=== PATIENT | male | born 1965 | race Caucasian/White ===

== ENCOUNTER 2016-07-08 13:44 | Inpatient (IN) | payer MEDICARE ==
[~2016-07-08] VITALS: Ht 157.5 cm; Wt 72.6 kg
[2016-07-08 14:30] VITALS: BP 148/89
[2016-07-08 14:47] VITALS: BP 148/89; BMI 29.3
[2016-07-08 15:11] LABS: HEMATOCRIT 42.2 % (42.0-54.0); HEMOGLOBIN 14.2 g/dL (13.5-17.5); MCHC 33.6 g/dL (31.0-37.0); MCV 86.1 fL (80.0-100.0); RDW 12.2 % (11.5-14.5); WBC 12.8 10x3/uL (4.8-10.8)
[2016-07-08 15:34] LABS: ALBUMIN 3.2 g/dL (3.4-5.0); ALKALINE PHOSPHATASE 101 U/L (46-116); ALT (SGPT) 24 U/L (10-68); BILIRUBIN - TOTAL 0.52 mg/dL (0.2-1.3); CALC OSMOLALITY 267 mosm/kg (275-300); CALCIUM 9.6 mg/dL (8.5-10.1); CARBON DIOXIDE 29.4 mmol/L (21.0-32.0); CHLORIDE - SERUM 95 mmol/L (98-107); CREATININE - SERUM 0.8 mg/dL (0.6-1.3); GLUCOSE 106 mg/dL (74-106); PROTEIN - SERUM 7.4 g/dL (6.4-8.2); SODIUM 134 mmol/L (136-145); UREA NITROGEN 12 mg/dL (7-18); eGFR NON AFRICAN AMERICAN > 90 mL/min (90-120)
[2016-07-08 15:50] LABS: PLATELET COUNT 465 10x3/uL (130-400)
[2016-07-08] MEDS ORDERED: HYDROCODONE-APA1 TAB PO (15:52)
[2016-07-08] MEDS ORDERED: VISTARIL25 MG PO (15:52)
[2016-07-08 17:28] LABS: EOSINOPHILS 2 % (0-7); LYMPHOCYTES 19 % (15-50); MONOCYTES 4 % (2-11); NEUTROPHILS 75 % (40-80); PLATELET ESTIMATE NORMAL
--- NOTE | 2016-07-08 18:08 | NUR ---
REMAINS WITHOUT NEEDS,WITHOUT DISTRESS.CONT PLAN OF CARE
[2016-07-08 20:00] VITALS: BP 113/65
--- NOTE | 2016-07-08 20:00 | NUR ---
ASSESSMENT PER FLOWSHEET. IV PATENT LEFT FROE ARM OF NS AT 75CC'S/HR SITE CLEAR RT LUNG BASES WITH EXPIRATORY WHEEZES. DIMINISHED ON THE LEFT. SCD'S ON. SR UP X2 CALL LIGHT WITHIN REACH.
--- NOTE | 2016-07-08 21:20 | NUR ---
MEDS GIVEN PER APR. UP AD LISA TO BR CLEAN CATCH UA OBTAINED AND SENT TO LAB.
[2016-07-08 21:34] LABS: APPEARANCE CLEAR (CLEAR); COLOR DK YELLOW (YELLOW)
[2016-07-08 21:35] LABS: BILIRUBIN NEGATIVE (NEGATIVE); GLUCOSE NEGATIVE (NEGATIVE); KETONE NEGATIVE (NEGATIVE); LEUKOCYTE ESTERASE NEGATIVE (NEGATIVE); NITRITE NEGATIVE (NEGATIVE); PROTEIN TRACE mg/dL (NEGATIVE); UROBILINOGEN NORMAL (NORMAL)
--- NOTE | 2016-07-08 21:52 | NUR ---
RESTING AT THIS TIME..
--- NOTE | 2016-07-08 22:36 | NUR ---
BEDSIDE IONA TX DONE SPUTUM SPECIMEN COLLECTED AND SENT TO LAB.
[2016-07-09] VITALS: BP 122/76
--- NOTE | 2016-07-09 00:46 | NUR ---
C/O HEADACHE PAIN RATES PAIN #5 TYLENOL 325MG TAB ONE PO GIVEN FOR PAIN CONTROL.
--- NOTE | 2016-07-09 02:59 | NUR ---
EYES CLOSED RESPIRATIONS WITH EASE AND UNLABORED.
[2016-07-09 04:00] VITALS: BP 117/76
--- NOTE | 2016-07-09 04:24 | NUR ---
RESTING QUIETLY DENIES NEEDS.
[2016-07-09 05:15] LABS: BASOPHILS 0.4 % (0-2); EOSINOPHILS 4.9 % (0-7); HEMATOCRIT 38.8 % (42.0-54.0); HEMOGLOBIN 12.9 g/dL (13.5-17.5); IMMATURE GRANULOCYTES 0.4 % (0-5); LYMPHOCYTES 21.6 % (15-50); MCH 29.1 pg (26.0-34.0); MCHC 33.2 g/dL (31.0-37.0); MCV 87.4 fL (80.0-100.0); MEAN PLATELET VOLUME 10.9 fL (7.4-10.4); MONOCYTES 12.4 % (2-11); NEUTROPHILS 60.3 % (40-80); PLATELET COUNT 469 10x3/uL (130-400); RBC 4.44 10x6/uL (4.20-6.10); RDW 12.4 % (11.5-14.5); WBC 10.9 10x3/uL (4.8-10.8)
[2016-07-09 05:45] LABS: ALBUMIN 2.7 g/dL (3.4-5.0); ALKALINE PHOSPHATASE 88 U/L (46-116); ALT (SGPT) 23 U/L (10-68); BILIRUBIN - TOTAL 0.53 mg/dL (0.2-1.3); CALC OSMOLALITY 269 mosm/kg (275-300); CALCIUM 9.1 mg/dL (8.5-10.1); CARBON DIOXIDE 30.8 mmol/L (21.0-32.0); CHLORIDE - SERUM 97 mmol/L (98-107); CREATININE - SERUM 0.8 mg/dL (0.6-1.3); GLUCOSE 109 mg/dL (74-106); PROTEIN - SERUM 7.3 g/dL (6.4-8.2); SODIUM 135 mmol/L (136-145); UREA NITROGEN 10 mg/dL (7-18); eGFR NON AFRICAN AMERICAN > 90 mL/min (90-120)
[2016-07-09 05:48] LABS: POTASSIUM - SERUM 3.3 mmol/L (3.5-5.1)
[2016-07-09 07:38] VITALS: BP 107/73
--- NOTE | 2016-07-09 07:41 | NUR ---
AWAKE AND ALERT. ORIENTED X3. NO C/O AT THIS TIME. SKIN IS INTACT WHTOUT REDNESS. LUNGS HAVE EXPIRATORY WHEEZES THROUGHOUT. REPORTS PRODUCTIVE COUGH. IV TO LEFT FOREARM IS PATENT WITHOUT REDNESS AT ISNERTION SITE. DENIES NEEDS. SCD'S IN PLACE.
--- NOTE | 2016-07-09 07:58 | NUR ---
REQUESTED AND GIVEN ONE HYDROCODONE PO FOR C/O RIB PAIN AND RIGHT ARM PAIN LEVEL 6. WILL MONITOR.
--- NOTE | 2016-07-09 10:21 | NUR ---
RESTING QUIETLY IN BED. REPORTED GOOD PAIN MANAGEMENT WITH USE OF HYDROCODONE.
--- NOTE | 2016-07-09 12:11 | NUR ---
RESTING QUIETLY IN BED. BP IS A LITTLE LOW AT THIS TIME. WILL MONITOR.
[2016-07-09 12:22] VITALS: BP 101/62
[2016-07-09 12:25] VITALS: Ht 157.5 cm; Wt 72.6 kg
--- NOTE | 2016-07-09 13:16 | NUR ---
Patient Name: ZOHAIB PHILLIPS Admission Status: Elective Accout number: [id number] Admission Date: 07-08-2016 : 1965 Admission Diagnosis: Attending: TOM Current LOS: 1 Anticipated DC Date: 07-11-2016 Planned Disposition: Home Primary Insurance: MEDICARE A & B Discharge Planning Comments: CM MET WITH PT. PT STATES THAT HE LIVE IN A SAFE ENVIRONMENT WITH HIS 14 YEAR OLD DAUGHTER (HAVEN). PT STATES HE HAS 4 STEPS TO ENTER IN HIS HOME WITH A RAIL. PT DENIES ANY HH NEEDS WHEN HE RETURNS HOME. CM WILL CONTINUE TO FOLLOOW AND ASSIST NEEDED WITH DISCHARGE PLANNING/NEEDS PCP: [facility] Director Veterinary: Kyleigh Sabillon * Is the patient Alert and Oriented? Yes 0 * How many steps to enter\exit or inside your home? 4 0 * PCP [facility] 0 * Pharmacy [facility] 0 * Preadmission Environment Home with Family 0 * ADLs Independent 0 * Equipment None 0 * List name and contact numbers for known caregivers / representatives who currently or will assist patient after discharge: NONE- LIVES WITH 14 YR OLD DAUGHTER (HAVEN) 0 * Community resources currently utilized None 0 * Additional services required to return to the preadmission environment? Yes 0 * Can the patient safely return to the preadmission environment? Yes 0 * Has this patient been hospitalized within the prior 30 days at any hospital? No 0
[2016-07-09 14:46] VITALS: BP 127/65
--- NOTE | 2016-07-09 18:16 | NUR ---
REPORTS PAIN EASING WITH USE OF HYDROCODONE. ATE MOST OF SUPPER. NO CHANGES NOTED. DENIES NEEDS.
[2016-07-09 20:00] VITALS: BP 120/66
--- NOTE | 2016-07-09 22:18 | NUR ---
ASSESSED AT THE BEGINNING OF THE SHIFT. PT IS ALERT AND ORIENTED, ABLAE TO VERBALIZE NEEDS. HE TOOK HIS HS MEDS AND RECEIVED TYLENOL WITH IT DUE TO CHEST PAIN FORM HIS PNEUMONIA. THERE IS WHEEZING IN ALL LOBES AND HE SEEMS TO BE A LITTLE WEAK. HE HAS A URINAL AT HE BEDSIDE THAT HE IS USING AND O2 AT 2 LITERS PER N/C. HE IS ALSO ABLE TO TURN AND REPOSITION FOR COMFORT AND SKIN CARE. THE BED IS LOW, RAILS UP X'S 2 WITH THE CALL LIGHT AT HAND.
[2016-07-10] VITALS: BP 120/60
[2016-07-10 04:00] VITALS: BP 127/66
[2016-07-10 06:31] LABS: BASOPHILS 0.3 % (0-2); EOSINOPHILS 3.5 % (0-7); HEMATOCRIT 36.7 % (42.0-54.0); HEMOGLOBIN 12.1 g/dL (13.5-17.5); IMMATURE GRANULOCYTES 0.3 % (0-5); LYMPHOCYTES 14.2 % (15-50); MCH 28.9 pg (26.0-34.0); MCV 87.8 fL (80.0-100.0); MEAN PLATELET VOLUME 10.6 fL (7.4-10.4); MONOCYTES 10.1 % (2-11); NEUTROPHILS 71.6 % (40-80); PLATELET COUNT 473 10x3/uL (130-400); RBC 4.18 10x6/uL (4.20-6.10); RDW 12.4 % (11.5-14.5); WBC 11.5 10x3/uL (4.8-10.8)
[2016-07-10 06:57] LABS: ALBUMIN 2.5 g/dL (3.4-5.0); ALKALINE PHOSPHATASE 82 U/L (46-116); ALT (SGPT) 23 U/L (10-68); CALC OSMOLALITY 277 mosm/kg (275-300); CALCIUM 8.5 mg/dL (8.5-10.1); CARBON DIOXIDE 30.4 mmol/L (21.0-32.0); CHLORIDE - SERUM 102 mmol/L (98-107); CREATININE - SERUM 0.8 mg/dL (0.6-1.3); GLUCOSE 114 mg/dL (74-106); POTASSIUM - SERUM 3.1 mmol/L (3.5-5.1); PROTEIN - SERUM 6.9 g/dL (6.4-8.2); SODIUM 139 mmol/L (136-145); UREA NITROGEN 11 mg/dL (7-18); eGFR NON AFRICAN AMERICAN > 90 mL/min (90-120)
--- NOTE | 2016-07-10 07:34 | NUR ---
AWAKE AND ALERT. ORIENTED X3. NO C/O AT THIS TIME. LUNGS HAVE FAINT CRACKLES ON RIGHT SIDE, OCCASSIONAL PRODUCTIVE COUGH NOTED. SKIN IS INTACT WITHOUT REDNESS. IV TO LEFT FOREARM IS PATENT WITHOUT REDNESS. SCD'S OFF AT THIS TIME. DENIES NEEDS.
[2016-07-10 07:46] VITALS: BP 118/71
--- NOTE | 2016-07-10 09:00 | NUR ---
REQUESTED AND GIVEN ONE HYDROCODONE PO FOR C/O RIGHT ARM SHOULDER PAIN. WILL MONITOR.
--- NOTE | 2016-07-10 10:00 | NUR ---
AMBULATED IN [facility] PT. NO C/O AT THIS TIME.
[2016-07-10 11:51] VITALS: BP 117/66
--- NOTE | 2016-07-10 12:40 | NUR ---
IV TO LEFT FOREARM FALLING OUT. D/C WITH CATHETER INTACT. RESITED TO LEFT FOREARM AFTER ONE ATTEMPT WITH 22G INSYTE. TOLERATED WELL.
[2016-07-10 14:44] VITALS: BP 127/79
--- NOTE | 2016-07-10 17:31 | NUR ---
VISITORS IN ROOM. SITTING UP IN BED EATING SUPPER. NO CHANGES NOTED. DENIES NEEDS.
[2016-07-10 20:00] VITALS: BP 130/69
[2016-07-11] VITALS: BP 130/73
[2016-07-11 04:00] VITALS: BP 123/84
--- NOTE | 2016-07-11 04:34 | NUR ---
ASSESSED AT THE BEGINNING OF THE SHIFT. PT IS ALERT AND ORIENTED, ABLE TO VERBALIZE NEEDS. HE STATED HE FELT BETTER TONIGHT THAT THE DAY BEFORE. HE IS WEARING HIS O2 AT 2 LITERS AND WHEN HE COUGHS HE IS GETTING PHLEGM UP. NORCO WAS GIVEN AT BEDTIME AND THEN LATER WHEN HE COULD NOT SLEEP HE REQUESTED HIS TYLENOL. THE BED IS LOW, RAILS UP X'S 2 WITH THE CALL LIGHT AT HAND.
[2016-07-11 05:10] LABS: BASOPHILS 0.1 % (0-2); EOSINOPHILS 0 % (0-7); HEMATOCRIT 39.8 % (42.0-54.0); HEMOGLOBIN 13.1 g/dL (13.5-17.5); IMMATURE GRANULOCYTES 0.3 % (0-5); MCH 28.9 pg (26.0-34.0); MCHC 32.9 g/dL (31.0-37.0); MCV 87.9 fL (80.0-100.0); MEAN PLATELET VOLUME 10.6 fL (7.4-10.4); MONOCYTES 3.1 % (2-11); NEUTROPHILS 92.5 % (40-80); PLATELET COUNT 549 10x3/uL (130-400); RBC 4.53 10x6/uL (4.20-6.10); RDW 12.5 % (11.5-14.5)
[2016-07-11 05:12] LABS: WBC 15.4 10x3/uL (4.8-10.8)
[2016-07-11 05:22] LABS: ALBUMIN 2.7 g/dL (3.4-5.0); ALKALINE PHOSPHATASE 83 U/L (46-116); ALT (SGPT) 23 U/L (10-68); CALC OSMOLALITY 279 mosm/kg (275-300); CALCIUM 9.7 mg/dL (8.5-10.1); CARBON DIOXIDE 30.1 mmol/L (21.0-32.0); CHLORIDE - SERUM 103 mmol/L (98-107); CREATININE - SERUM 0.8 mg/dL (0.6-1.3); GLUCOSE 154 mg/dL (74-106); PROTEIN - SERUM 7.6 g/dL (6.4-8.2); SODIUM 139 mmol/L (136-145); UREA NITROGEN 9 mg/dL (7-18); eGFR NON AFRICAN AMERICAN > 90 mL/min (90-120)
[2016-07-11 05:23] LABS: POTASSIUM - SERUM 3.9 mmol/L (3.5-5.1)
[2016-07-11 08:05] VITALS: BP 124/73
[2016-07-11 12:38] VITALS: BP 123/64
[2016-07-11] MEDS ORDERED: MEDROL DOSE PACK4 MG PO (14:18)
[2016-07-11] MEDS ORDERED: LEVAQUIN500 MG PO (14:19)
[2016-07-11 16:01] VITALS: BP 133/76
--- NOTE | 2016-07-11 16:20 | NUR ---
D/C IV WITH CATHETER INTACT. DISCHARGE INSTRUCTIONS COMPLETED WITH PATIENT. PATIENT DENIES QUESTIONS
--- NOTE | 2016-07-11 16:30 | NUR ---
PATIENT LEFT VIA WHEELCHAIR WITH PAYROLL ADMINISTRATIVE ASSISTANT
== END 2016-07-11 16:36 | disposition home or self-care (01) | DRG 194 ==
LOC: D.MS 13:44
PROVIDERS: Family Medicine; ADMIT Family Medicine
DX: J18.1 Lobar pneumonia, unspecified organism (principal); E87.1 Hypo-osmolality and hyponatremia; R09.02 Hypoxemia; Z87.891 Personal history of nicotine dependence

== ENCOUNTER 2016-11-06 01:54 | Inpatient (IN) | payer MEDICARE ==
[~2016-11-06] VITALS: Ht 175.3 cm; Wt 68.0 kg
[~2016-11-06 01:54] MED LIST: HYDROCODONE-APA1 TAB PO; LEVAQUIN500 MG PO; MEDROL DOSE PACK4 MG PO; VISTARIL25 MG PO
[2016-11-06 04:01] LABS: BASOPHILS 0.3 % (0-2); EOSINOPHILS 3.6 % (0-7); HEMATOCRIT 45.9 % (42.0-54.0); HEMOGLOBIN 15.6 g/dL (13.5-17.5); IMMATURE GRANULOCYTES 0.2 % (0-5); MCH 29.1 pg (26.0-34.0); MCV 85.5 fL (80.0-100.0); MONOCYTES 8.8 % (2-11); NEUTROPHILS 77.1 % (40-80); RBC 5.37 10x6/uL (4.20-6.10); RDW 13.2 % (11.5-14.5); WBC 14.9 10x3/uL (4.8-10.8)
[2016-11-06 04:02] LABS: PLATELET COUNT 385 10x3/uL (130-400)
[2016-11-06 04:05] LABS: ALBUMIN 3.6 g/dL (3.4-5.0); ALKALINE PHOSPHATASE 90 U/L (46-116); ALT (SGPT) 18 U/L (10-68); BILIRUBIN - TOTAL 0.27 mg/dL (0.2-1.3); CALC OSMOLALITY 280 mosm/kg (275-300); CALCIUM 9.3 mg/dL (8.5-10.1); CARBON DIOXIDE 30.9 mmol/L (21.0-32.0); CHLORIDE - SERUM 103 mmol/L (98-107); CREATINE KINASE 148 UL (21-232); CREATININE - SERUM 0.8 mg/dL (0.6-1.3); GLUCOSE 116 mg/dL (74-106); POTASSIUM - SERUM 3.7 mmol/L (3.5-5.1); SODIUM 141 mmol/L (136-145); UREA NITROGEN 10 mg/dL (7-18); eGFR NON AFRICAN AMERICAN > 90 mL/min (90-120)
[2016-11-06 05:44] VITALS: BMI 22.2
--- NOTE | 2016-11-06 07:30 | NUR ---
RECIEVED PT DURING WALKING ROUNDS. PT RESTING IN BED WITH COMPLAINTS OF PAIN OF AN 8 ON A SCALE OF 1-10. NO MEDICATION TO BE GIVEN AT THIS TIME. ASSESSMENT DONE PER FLOWSHEET. BED IN LOW POSITION AND CALL LIGHT WITHIN REACH. WILL CONTINUE TO MONITOR.
[2016-11-06 08:33] VITALS: BP 127/58
--- NOTE | 2016-11-06 12:00 | NUR ---
RECIEVD ORDERS FOR PAIN MEDICATION AT THIS TIME, ADMINISTERED PER ORDER. PT RESTING IN BED, CALL LIGHT WITHIN REACH. WILL CONTINUE TO MONITOR.
[2016-11-06 12:16] VITALS: Ht 175.3 cm; Wt 68.0 kg
[2016-11-06 12:48] VITALS: BP 112/65
[2016-11-06 17:18] VITALS: BP 145/74
[2016-11-06 20:00] VITALS: BP 132/47
[2016-11-07] VITALS: BP 113/53
--- NOTE | 2016-11-07 01:55 | NUR ---
PATIENT LAYING IN BED. SOME COPLAINTS OF DISCOMFORT. STATED HIS BASELINE IS A 3-4 FOR PAIN. NORCO 10 GIVEN FOR C/O PAIN TO KNEE AND ANKLE. PATIENT STATED THAT HE HASN'T BEEN ABLE TO SLEEP. NO OTHER NEEDS NOTED
--- NOTE | 2016-11-07 02:24 | NUR ---
RN NOTE: PATIENT LAYING IN BED WITH LEGS ELEVATED. NO ACUTE DISTRESS NOTED. PIV SALINE LOCKED. NO NEEDS NOTED AT THIS TIME.
[2016-11-07 04:00] VITALS: BP 113/63
[2016-11-07 05:37] LABS: HEMATOCRIT 44.6 % (42.0-54.0); HEMOGLOBIN 15.2 g/dL (13.5-17.5); MCHC 34.1 g/dL (31.0-37.0); MEAN PLATELET VOLUME 10.7 fL (7.4-10.4); PLATELET COUNT 400 10x3/uL (130-400); RBC 5.25 10x6/uL (4.20-6.10); RDW 13.4 % (11.5-14.5); WBC 27.9 10x3/uL (4.8-10.8)
[2016-11-07 05:54] LABS: ALBUMIN 3.5 g/dL (3.4-5.0); ALKALINE PHOSPHATASE 87 U/L (46-116); ALT (SGPT) 17 U/L (10-68); BILIRUBIN - TOTAL 0.22 mg/dL (0.2-1.3); CALC OSMOLALITY 280 mosm/kg (275-300); CALCIUM 9.8 mg/dL (8.5-10.1); CARBON DIOXIDE 27.7 mmol/L (21.0-32.0); CHLORIDE - SERUM 102 mmol/L (98-107); CREATININE - SERUM 0.9 mg/dL (0.6-1.3); GLUCOSE 140 mg/dL (74-106); POTASSIUM - SERUM 3.4 mmol/L (3.5-5.1); PRO BNP 388 pg/mL (0-125); PROTEIN - SERUM 7.8 g/dL (6.4-8.2); SODIUM 139 mmol/L (136-145); eGFR NON AFRICAN AMERICAN > 90 mL/min (90-120)
[2016-11-07 06:01] LABS: UREA NITROGEN 15 mg/dL (7-18)
[2016-11-07 06:02] LABS: LYMPHOCYTES 9 % (15-50); MONOCYTES 3 % (2-11); NEUTROPHILS 87 % (40-80); PLATELET ESTIMATE NORMAL
--- NOTE | 2016-11-07 07:35 | NUR ---
A&O, DENIES NEEDS, BED LOWEST POSITION, CALL LIGHT IN REACH, WILL CONTINUE TO MONITO
--- NOTE | 2016-11-07 08:00 | NUR ---
RN NOTE; PT RESTING IN BED, NO COMPLAINTS AT THIS TIME, NO SIGNS OF ACUTE DISTRESS. BED IN LOWEST POSITION, SIDE RAILS UP X 2, CALL LIGHT WITHIN REACH.
[2016-11-07 09:45] VITALS: BP 114/72
[2016-11-07 13:04] VITALS: BP 101/65
[2016-11-07 16:32] VITALS: BP 128/70
[2016-11-07 20:00] VITALS: BP 112/56
--- NOTE | 2016-11-08 03:57 | NUR ---
RN NOTE: PT RESTING IN SEMI ROQUE'S POSITION WITH EYES CLOSED AND UNLABORED BREATHING. O2 IN USE YULIA NC AT 2.5 L. IV IN RIGHT FA SALINE LOCKED. WILL CONTINUE TO MONITOR FOR NEEDS. CALL LIGHT WITHIN REACH.
[2016-11-08 04:00] VITALS: BP 127/72
[2016-11-08 05:28] LABS: BASOPHILS 0 % (0-2); EOSINOPHILS 0 % (0-7); HEMOGLOBIN 15.8 g/dL (13.5-17.5); IMMATURE GRANULOCYTES 0.4 % (0-5); LYMPHOCYTES 2.9 % (15-50); MCH 29.3 pg (26.0-34.0); MCHC 33.6 g/dL (31.0-37.0); MCV 87.2 fL (80.0-100.0); MEAN PLATELET VOLUME 10.6 fL (7.4-10.4); MONOCYTES 3.1 % (2-11); NEUTROPHILS 93.6 % (40-80); PLATELET COUNT 448 10x3/uL (130-400); RBC 5.39 10x6/uL (4.20-6.10); RDW 13.9 % (11.5-14.5); WBC 35.8 10x3/uL (4.8-10.8)
[2016-11-08 05:39] LABS: ALBUMIN 3.4 g/dL (3.4-5.0); ALKALINE PHOSPHATASE 82 U/L (46-116); CALCIUM 9.6 mg/dL (8.5-10.1); CARBON DIOXIDE 27.6 mmol/L (21.0-32.0); CHLORIDE - SERUM 101 mmol/L (98-107); GLUCOSE 123 mg/dL (74-106); POTASSIUM - SERUM 4.4 mmol/L (3.5-5.1); PROTEIN - SERUM 7.7 g/dL (6.4-8.2); SODIUM 140 mmol/L (136-145); eGFR NON AFRICAN AMERICAN 84 mL/min (90-120)
[2016-11-08 05:41] LABS: ALT (SGPT) 23 U/L (10-68); CALC OSMOLALITY 282 mosm/kg (275-300); UREA NITROGEN 21 mg/dL (7-18)
--- NOTE | 2016-11-08 08:05 | NUR ---
PT LAYING IN BED WITH NO VISABLE SIGNS OF PAIN OR DISCOMFORT AT THIS TIME. BED IN LOW POSITION AND CALL LIGHT WITHIN REACH. WILL CONTINUE TO MONITOR.
--- NOTE | 2016-11-08 08:50 | NUR ---
RATES PAIN A 6, NORCO GIVEN PER MAR, DENIES OTHER NEEDS, NO DISTRESS NOTED, BED LOWEST POSITION, CALL LIGHT IN REACH, WILL CONTINUE TO MONITOR
[2016-11-08 09:42] VITALS: BP 140/71
[2016-11-08 11:55] VITALS: BP 109/46
[2016-11-08 15:53] VITALS: BP 125/61
[2016-11-08 20:00] VITALS: BP 135/73
--- NOTE | 2016-11-09 02:05 | NUR ---
PT SLEEPING. RESP EVEN, UNLABORED. NO DISTRESS NOTED. CONTINUE SUPPLIER QUALITY ENGINEERING MANAGER'S PLAN OF CARE.
[2016-11-09 04:00] VITALS: BP 126/78
[2016-11-09 06:07] LABS: BASOPHILS 0 % (0-2); EOSINOPHILS 0 % (0-7); HEMATOCRIT 45.5 % (42.0-54.0); HEMOGLOBIN 15.1 g/dL (13.5-17.5); IMMATURE GRANULOCYTES 0.3 % (0-5); LYMPHOCYTES 5.5 % (15-50); MCH 28.8 pg (26.0-34.0); MCHC 33.2 g/dL (31.0-37.0); MCV 86.8 fL (80.0-100.0); MEAN PLATELET VOLUME 10.9 fL (7.4-10.4); MONOCYTES 4.3 % (2-11); NEUTROPHILS 89.9 % (40-80); PLATELET COUNT 440 10x3/uL (130-400); RBC 5.24 10x6/uL (4.20-6.10); RDW 13.8 % (11.5-14.5); WBC 23.2 10x3/uL (4.8-10.8)
[2016-11-09 06:16] LABS: ALBUMIN 3.4 g/dL (3.4-5.0); ALKALINE PHOSPHATASE 85 U/L (46-116); ALT (SGPT) 20 U/L (10-68); CALC OSMOLALITY 281 mosm/kg (275-300); CALCIUM 9.4 mg/dL (8.5-10.1); CHLORIDE - SERUM 100 mmol/L (98-107); CREATININE - SERUM 0.9 mg/dL (0.6-1.3); GLUCOSE 110 mg/dL (74-106); POTASSIUM - SERUM 4.4 mmol/L (3.5-5.1); PROTEIN - SERUM 7.5 g/dL (6.4-8.2); SODIUM 139 mmol/L (136-145); UREA NITROGEN 22 mg/dL (7-18); eGFR NON AFRICAN AMERICAN > 90 mL/min (90-120)
--- NOTE | 2016-11-09 07:50 | NUR ---
ASSESSMENT COMPLETE. SL TO R FA PATENT. NOT WEARING O2 AT THIS TIME. NONPRODUCTIVE COUGH. DENIES ANY NEEDS AT THIS TIME.
[2016-11-09 09:40] VITALS: BP 142/88
[2016-11-09 10:11] LABS: ANA REFLEX - DIRECT Negative (Negative)
[2016-11-09 11:11] LABS: IMMUNOGLOBULIN E 166 IU/mL (0-100)
[2016-11-09 11:45] VITALS: BP 115/61
[2016-11-09] MEDS ORDERED: VIBRAMYCIN 100100 MG PO (12:25)
[2016-11-09] MEDS ORDERED: IPRAT-ALBUT 0.5-3 ML INH (12:26)
[2016-11-09] MEDS ORDERED: BENZONATATE200 MG PO (12:26)
[2016-11-09] MEDS ORDERED: MUCINEX DM ER1 EAC1 PO (12:26)
[2016-11-09] MEDS ORDERED: NICODERM C1 PATCH .1 TRANSDERM (12:26)
[2016-11-09] MEDS ORDERED: BROVANA15 MCG/2 M INH (12:26)
[2016-11-09] MEDS ORDERED: FLUTICASONE PRO16 GM NASAL (12:27)
[2016-11-09] MEDS ORDERED: FLORAJEN3 CAPS460 MG PO (12:27)
[2016-11-09] MEDS ORDERED: SINGULAIR10 MG PO (12:27)
[2016-11-09] MEDS ORDERED: PREDNISONE10 MG PO (12:28)
--- NOTE | 2016-11-09 12:29 | NUR ---
NUTRITION F/U CHART REVIEWED. PT TOLERATING AHA DIET WITH 100% INTAKE BREAKFAST. WILL CONTINUE TO PROVIDE DIET, MONITOR PO INTAKE. RD FOLLOWING
--- NOTE | 2016-11-09 12:52 | NUR ---
DR LUIS ASKED FOR CM TO SET UP NEBULIZER AT HOME AND SOS INFORMATION. NEBULIZER ORDER SET UP WITH [facility]. FAXED INFO TO [facility]. PATIENT DENIES NEEDING ANY HH SERVICES AND STATED HIS HOME IS SAFE TO RETURN TOO. HE STATED THAT HIS NEIGHBOR WOULOD BE THE ONE TO TAKE HIM HOME CM WILL CONTINUE TO FOLLOW AND ASSIST WITH DISCHARGE PLANNING NEEDS
--- NOTE | 2016-11-09 14:23 | NUR ---
SL REMOVED. CATHETER TIP INTACT. DISCHARGE TEACHING GIVEN TO PATIENT. VOICED UNDERSTANDING. REFUSED INFORMATION FROM [employer] QUIT[employer]. WAITING RIDE HOME FROM FAMILY.
--- NOTE | 2016-11-09 15:01 | NUR ---
DC'D HOME WITH FAMILY. ESCORTED TO VEHICLE BY LEAK HUNTER WITH BELONGINGS.
[2016-11-11 22:08] LABS: CYCLIC CITRULL PEPTIDE IGG/IGA 4 units (0-19)
[2016-11-13 03:12] LABS: MYCOPLASMA PNEUMO IGG 554 U/mL (0-99)
== END 2016-11-09 15:00 | disposition home or self-care (01) | DRG 190 ==
LOC: D.ER 01:54 → D.MS 04:24
PROVIDERS: Emergency Medicine; Internal Medicine Pulmonary Disease; ADMIT Family Medicine Adult Medicine
DX: J44.0 Chronic obstructive pulmonary disease with (acute) lower respiratory infection (principal); J18.1 Lobar pneumonia, unspecified organism; F17.203 Nicotine dependence unspecified, with withdrawal; J44.1 Chronic obstructive pulmonary disease with (acute) exacerbation; R09.02 Hypoxemia; J20.9 Acute bronchitis, unspecified

== ENCOUNTER 2018-03-16 19:10 | Emergency (ER) | payer MEDICARE ==
[~2018-03-16] VITALS: Ht 175.3 cm; Wt 77.3 kg
[~2018-03-16 19:10] MED LIST changes: +BENZONATATE200 MG PO; +BROVANA15 MCG/2 M INH; +FLORAJEN3 CAPS460 MG PO; +FLUTICASONE PRO16 GM NASAL; +IPRAT-ALBUT 0.5-3 ML INH; +MUCINEX DM ER1 EAC1 PO; +NICODERM C1 PATCH .1 TRANSDERM; +PREDNISONE10 MG PO; +SINGULAIR10 MG PO; +VIBRAMYCIN 100100 MG PO
[2018-03-16 19:12] VITALS: BP 148/76; Ht 175.3 cm; Wt 77.3 kg
[2018-03-16] MEDS ORDERED: KLONOPIN1 MG PO (19:16)
[2018-03-16] MEDS ORDERED: CRESTOR10 MG PO (19:16)
[2018-03-16] MEDS ORDERED: PHENERGAN25 M1 PO (19:16)
[2018-03-16 19:59] LABS: BASOPHILS 0.3 % (0-2); EOSINOPHILS 0.4 % (0-7); HEMATOCRIT 42.7 % (42.0-54.0); HEMOGLOBIN 14.5 g/dL (13.5-17.5); IMMATURE GRANULOCYTES 0.4 % (0-5); LYMPHOCYTES 16.1 % (15-50); MCH 30.9 pg (26.0-34.0); MCV 90.9 fL (80.0-100.0); NEUTROPHILS 68.8 % (40-80); RDW 13.1 % (11.5-14.5); WBC 6.8 10x3/uL (4.8-10.8)
[2018-03-16 20:07] LABS: INR 1.02 (0.85-1.17); PROTIME 12.9 SECONDS (11.6-15.0)
[2018-03-16 20:08] LABS: APTT 37.8 SECONDS (22.8-39.4)
[2018-03-16 20:13] LABS: ALBUMIN 3.7 g/dL (3.4-5.0); ALKALINE PHOSPHATASE 73 U/L (46-116); ALT (SGPT) 64 U/L (10-68); BILIRUBIN - TOTAL 0.32 mg/dL (0.2-1.3); CALC OSMOLALITY 270 mosm/kg (275-300); CALCIUM 8.8 mg/dL (8.5-10.1); CHLORIDE - SERUM 97 mmol/L (98-107); CREATININE - SERUM 0.8 mg/dL (0.6-1.3); GLUCOSE 102 mg/dL (74-106); POTASSIUM - SERUM 3.7 mmol/L (3.5-5.1); PROTEIN - SERUM 7.6 g/dL (6.4-8.2); SODIUM 136 mmol/L (136-145); UREA NITROGEN 10 mg/dL (7-18); eGFR NON AFRICAN AMERICAN > 90 mL/min (90-120)
[2018-03-16 20:17] LABS: PLATELET COUNT 195 10x3/uL (130-400)
[2018-03-16] MEDS ORDERED: NORVASC5 MG PO (20:19)
[2018-03-16] MEDS ORDERED: PAXIL30 MG PO (20:19)
[2018-03-16] MEDS ORDERED: PRINIVIL20 MG PO (20:19)
[2018-03-16] MEDS ORDERED: OMEPRAZOLE20 M1 PO (20:19)
[2018-03-16] MEDS ORDERED: XANAX0.5 MG PO (20:20)
[2018-03-16] MEDS ORDERED: NORCO 10-325 TA1 TAB PO (20:20)
[2018-03-16 20:26] LABS: CREATINE KINASE 100 UL (21-232)
[2018-03-16 20:28] LABS: TROPONIN-I < 0.017 ng/mL (0.000-0.060)
[2018-03-16 22:24] LABS: APPEARANCE CLEAR (CLEAR); BILIRUBIN NEGATIVE (NEGATIVE); COLOR YELLOW (YELLOW); GLUCOSE NEGATIVE (NEGATIVE); KETONE NEGATIVE (NEGATIVE); NITRITE NEGATIVE (NEGATIVE); PROTEIN NEGATIVE (NEGATIVE); SPECIFIC GRAVITY 1.015 (1.005-1.020); UROBILINOGEN NORMAL (NORMAL)
[2018-03-16 22:40] LABS: UDS - AMPHET NEGATIVE QUAL (NEGATIVE); UDS - BARB NEGATIVE QUAL (NEGATIVE); UDS - BENZO POSITIVE QUAL (NEGATIVE); UDS - COCAINE NEGATIVE QUAL (NEGATIVE); UDS - OPIATE POSITIVE QUAL (NEGATIVE); UDS - PCP NEGATIVE QUAL (NEGATIVE); UDS - THC NEGATIVE QUAL (NEGATIVE)
== END 2018-03-17 00:48 | disposition home or self-care (01) ==
LOC: D.ER 19:10
PROVIDERS: Family Medicine
DX: B34.9 Viral infection, unspecified (principal); F13.129 Sedative, hypnotic or anxiolytic abuse with intoxication, unspecified; R50.9 Fever, unspecified; F17.200 Nicotine dependence, unspecified, uncomplicated